=== PATIENT | male | born 1965 | race Caucasian/White ===

== ENCOUNTER → 2017-10-17 13:11 | Outpatient (CLI) | payer OTHER, SELFPAY ==
--- NOTE | 2017-10-17 | IMM_PTH ---
PATIENT: NOAM MENSAH LOC: [facility] U#:[id number] AGE/SX: 59/M ROOM: RE10/17/[address]: Dr. Malachi Saez MD : 1965 BED: DIS: SPEC #: [id number] RECD: 10/21/17 13:10 STATUS: PABLO REQ #: [id number] MAGGY: 10/17/17 00:[address]: Malachi Saez DEPT: IMMUNOHISTOCHEMISTRY RECD BY: Christy Richmond ENTERED: 10/21/17 13:11 SP TYPE: IMMUNO OTHR DR: Dr. Vijay Warner DO Tissues: Skin of eyelid, NOS Procedures: SMA (add) CD34 (add) MACRO (add) Pankeratin (add) Vimentin (initial) S-100 (add) PHYSICIAN & INSTITUTION [place] [id number] SPECIMEN INFORMATION: Tissue Source: Left upper eyelid lesion Clinical Info: Increased size of left upper eyelid lesion Specimen Number: [id number] CPT code: 98721, 74106 x5 METHODOLOGY: Deparaffinized sections of prefer/formalin-fixed tissue or PAP/DQ stained slides are incubated with monoclonal/polyclonal antibodies/oligonucleotide probes. Localization is made via biotin free immunoperoxidase method. Appropriate controls are performed and reacted as expected. Results on target cell population are indicated in the following table: RESULTS: ANTIBODY / CLONE RESULT Vimentin (V9) positive Actin (1A4) negative Macro (HAM-56) negative S-100 (4C4.9) negative AE1-3 (AE1/AE3/PCK26) negative CD34 (QBEnd-10) positive These tests were developed and their performance characteristics determined by [facility]. They may not have been cleared or approved by the U.S. Food and Drug Administration. The FDA has determined that such clearance or approval is not necessary. INTERPRETATION: Left upper eyelid lesion, excision: Benign fibrous nodule. AM:byron 10/21/17
--- NOTE | 2017-10-17 | LES_PTH ---
PATIENT: NOAM MENSAH LOC: [facility] U#:[id number] AGE/SX: 59/M ROOM: RE10/17/[address]: Dr. Malachi Saez MD : 1965 BED: DIS: SPEC #: [id number] RECD: 10/17/17 13:57 STATUS: PABLO MIGUEL ÁNGEL #: [id number] MAGGY: 10/17/17 00:[address]: Malachi Saez DEPT: SURGICAL PATHOLOGY RECD BY: Simone Eckert ENTERED: 10/20/17 08:47 SP TYPE: Lesion OTHR DR: Dr. Vijay Warner, Tissues: Skin of eyelid, NOS Procedures: Surgery Specimen Level IV HEADER OPERATION: Left upper lid lesion excision PRE-OP DIAGNOSIS: Increased size of left upper lid lesion TISSUE SUBMITTED: Left upper lid lesion MICROSCOPIC DIAGNOSIS Left upper eyelid lesion, biopsy: Benign fibrous nodule. AM:byron 10/21/17 COMMENT Immunohistochemistry ([id number]) supports the above diagnosis. Case has been reviewed in consultation with Dr. Singh who concurs with the above diagnosis. IDC:SJ MICROSCOPIC DESCRIPTION Slides are reviewed. GROSS DESCRIPTION Received in fixative is one container labeled with the patient's name and designated left upper lid. The specimen consists of a piece of bernal-white skin measuring 0.3 x 0.3 x 0.2 cm. The specimen is totally submitted in one cassette. / STEPHEN:byron 10/20/17 TC:5 CPT: 12163
== END ==
PROVIDERS: Family Provider Family Medicine; PCP Family Medicine; Visit Provider Ophthalmology
DX: H02.9 Unspecified disorder of eyelid (principal)
CPT/HCPCS: 88305; 88341; 88342

== ENCOUNTER → 2018-10-27 | Outpatient (CLI) | payer OTHER, SELFPAY ==
[2018-10-27 12:27] LABS: Absolute Lymphocyte Count 1.84 X10^3/uL (0.83-4.51); Absolute Neutrophil Count 2.5 X10^3/uL (2.0-7.7); Basophil# 0.03 X10^3/uL; Basophil% 0.6 % (0-1); Hematocrit 43.7 % (40-54); Hemoglobin 14.3 g/dL (13.0-16.5); Lymphocyte # 1.84 X10^3/ul (4.0); Lymphocyte % 37.2 % (19-41); Mean Corp Hgb Conc 32.7 g/dL (32-36); Mean Corpuscular Volume 97.8 fL (80-94); Monocyte# 0.42 X10^3/uL; Monocyte% 8.5 % (0-10); Neutrophil # 2.45 X10^3/uL (2.7-7.7); Neutrophil % 49.5 % (47-70); Platelet Count 201 K/mm3 (150-450); RBC Distribution Width CV 12.4 % (11.6-14.6); RBC Distribution Width SD 44.9 fl (35.1-43.9); Red Blood Count 4.47 M/mm3 (4.6-6.2)
[2018-10-27 12:58] LABS: ALB/GLOB Ratio 1.4 RATIO (0.9-2.4); AST(SGOT) 14 U/L (15-37); Alanine Aminotransfer ALT/SGPT 23 U/L (16-61); Albumin, Serum 3.7 g/dL (3.2-5.0); Alkaline Phosphatase 54 U/L (45-117); Anion Gap 0 (5-15); BUN 19 mg/dL (7-18); BUN/Creat Ratio 15.7 RATIO (10-20); Calcium,Total 8.2 mg/dL (8.5-10.1); Chloride 109 mmol/L (98-107); Cholesterol 161 mg/dL (200); Creatinine, Serum 1.21 mg/dL (0.70-1.30); EST Glomerular Filtration Rate 67 mL/min (>60); Est Glom Filt Rate - Afr Amer 81 mL/min (>60); Globulin 2.7 g/dL (2.2-4.2); Glucose 94 mg/dL (74-106); High Density Lipoprotein 52 mg/dL; PSA,Total - Annual Screen 0.72 ng/mL (0.00-4.00); Potassium 3.8 mmol/L (3.5-5.1); Protein, Total 6.4 g/dL (6.4-8.2); Sodium Level 140 mmol/L (136-145); Triglycerides 65 mg/dL; Very Low Density Lipoprotein 13 mg/dL (5-40)
== END | disposition home or self-care (01) ==
LOC: BFHLAB 08:25
PROVIDERS: Family Provider Family Medicine; PCP Family Medicine; Visit Provider Family Medicine
DX: Z00.00 Encounter for general adult medical examination without abnormal findings (principal); Z12.5 Encounter for screening for malignant neoplasm of prostate
CPT/HCPCS: 36415; 80053; 80061; 84153; 85025; G0103

== ENCOUNTER 2018-11-05 06:00 | Day surgery (SDC) | payer OTHER, SELFPAY ==
[2018-11-05] VITALS (11 sets, daily range): BP systolic 110–136; BP diastolic 51–73; PULSE 69–85; RESP 14–16; TEMP 36.3–37; O2SAT 94–98; BMI 30.4
--- NOTE | 2018-11-05 06:49 | H&P.OPEN ---
History of Present Illness Date of Admission: 11/05/18 The patient is a 53 year old M here for screening colonoscopy. Patient reports he is never had a colonoscopy in the past. He denies any abdominal pain or blood in his stool. He denies any family history of colon cancer. Past Medical/Surgical History - Planned Operation Planned Operative Procedure/s: cscope open access Date of Operative Procedure: 11/05/18 Permit Signed: No S.O.S: No Is This Patient Having a Total Joint: No - Previous Hospitalizations/Surgeries HX Hospitalizations: No HX of Surgeries: wisdom teeth Any Problems With Anesthesia: No You/Your Family Experience Fever (Hyperthermia) With Anes: No Cholinesterase deficiency: No - Cardiovascular Hx Chest Pain within Last 2 months: No Hx of Irregular Heartbeat and/or Afib: No Hx Heart Attack: No Hx Congestive Heart Failure: No Hx Rheumatic Fever: No Hx Hypertension: Yes - controlled with med Hx Internal Defibrillator: No Hx Pacemaker: No Hx Cardiac Catheterization: No Hx Cardiac Surgery/Stents/Etc.: No Hx Stress Test: No HX Edema: Yes - left leg varicose veins Hx Pain in Legs when Walking/Leg Cramps: Yes - knees - Respiratory Chronic Cough: No HX of Shortness of Breath: No Hoarseness: No Hx Chronic Obstructive Pulmonary Disease (COPD): No Hx Asthma: No Hx Emphysema: No Hx Sleep Apnea: No Hx Oxygen Use at Home: No Hx Respiratory Tract Infection/Cold (presently): No Do You Snore Loudly (louder than talking or can be heard): Yes Do You Often Feel Tired/ Fatigued/ Sleepy Dring Daytime?: Yes Has Anyone Observed You Stop Breathing During Sleep?: Yes Result (for STOP score): Positive Hx Smoking: No Smoking Status: Never smoker - Gastrointestinal Hx Gastroesophageal Reflux: Yes Controlled With Meds: No - no meds started at this time Hx Gastrointestinal Disorders: No Hx Gastrointestinal Bleed: No Hx Ulcer: No Hx Hiatal Hernia: No Difficulty Chewing/Swallowing: No Recent Onset of Swallowing Problems: No Special diet followed at home: No Hx Unplanned Weight Loss of 20#: No HX Unplanned Weight Gain of 20#: No - Neurological Hx Seizures: No HX Syncope/Blackout Spells/Unconsciousness: No Hx CVA/Stroke: No Hx Transient Ischemic Attacks (TIA): No Hx Multiple Sclerosis: No Hx Parkinson's Disease: No Hx Head/Neck Injury: No Hx Headaches: No Hx Back Injury/Pain: Yes - ddd Recent Onset of Speech Difficulty: No Restless Legs: No Does patient have nerve stimulator: No Patient instructed to have device shut off: No Rep notified?: No - Blood Disorder Hx Leukemia: No Bleeding Tendencies: No Hx Deep Vein Thrombosis: No Hx High Cholesterol: No Blood Transmitted Disease: No Hx Hepatitis: No Hx Cirrhosis: No Hx Anemia: No Hx Blood Disorders: No - Genitourinary Hx Renal Disease: No Hx Dialysis: No - Musculoskeletal Hx Arthritis: Yes Hx Rheumatoid Arthritis: No Hx Gout: No Recent Onset of an Orthopedic Problem: No - Endocrine Hx Diabetes: No Thyroid Disease: No Hx Steroid Therapy: No - Psycho/Social Hx Substance Use: No Hx Alcohol Use: No Hx Anxiety: No Hx Depression: No Mental Illness: No Hx Dementia: No - Miscellaneous Hx Cancer: No Recent Exposure to Contagious Disease: No Active MRSA: No Hx of C-Diff: No Any Loose Teeth: No Allergies No Known Allergies Allergy (Verified 11/02/18 10:12) - Discharge Is Pt Admitted From a [facility], or a [facility]pc: No Who Could Help: family After D/C, Where Do you Plan to Go: Return Home - Physical Exam General: Alert, Oriented x3 Neck: No JVD Lungs: Normal air movement Cardiovascular: Regular rate, Regular Rhythm, Normal S1 Abdomen: Soft, Non Tender, Non-Distended Vital Signs Temp Pulse Resp BP Pulse Ox 97.3 F L 72 16 136/73 H 98 11/05/18 06:15 11/05/18 06:15 11/05/18 06:15 11/05/18 06:15 11/05/18 06:15 Oxygen Delivery Method Room Air Weight: 218 lb 11.177 oz Body Mass Index (BMI) 30.4 Assessment/Plan 53-year-old male for screening colonoscopy I explained endoscopy in detail to the patient. I explained the risks including but not limited to stroke or heart attack with anesthesia, perforation of the GI tract, bleeding, infection. I explained that any of these could necessitate further emergency surgery. The patient understands and all questions were answered sufficiently. The patient wishes to proceed with procedure. Darrell Parnell MD Pager: [facility] [address] [place] [address], [address] [place] [address] Office: Surgery Risks - Colonoscopy Risks Include but are not Limited To: Risks include but are not limited to: Bleeding, perforation requiring further surgery, inability to complete colonoscopy requiring barium enema.
--- NOTE | 2018-11-05 07:27 | OP.ENDO_ITS ---
11/05/2018 Vijay Warner [address] [place] [address] Re : Colonoscopy procedure for Semaj Dempsey Dear Dr. Warner This procedure was performed on October. My impressions and recommendations are as follows: Impressions : - The entire examined colon is normal on direct and retroflexion views. - No specimens collected. Recommendations : - Discharge patient to home. - Resume previous diet. - Continue present medications. - Repeat colonoscopy in 10 years for screening purposes. My findings are described in the full procedure note, which is enclosed. If I can be of further assistance, please feel free to contact me at Doctor phone number(s): , Work: . Sincerely, Darrell Parnell MD 11/05/2018 7:27:21 AM This report has been signed electronically.
== END 2018-11-05 08:21 | disposition home or self-care (01) ==
LOC: EN 06:01 → AC 06:02
PROVIDERS: Family Provider Family Medicine; PCP Family Medicine; Referring Provider Surgery; Visit Provider Surgery
PROC: 0DJD8ZZ Inspection of Lower Intestinal Tract, Via Natural or Artificial Opening Endoscopic (ICD-10-PCS; CPT 45378; principal; 2018-11-05 06:55)
DX: Z12.11 Encounter for screening for malignant neoplasm of colon (principal); I10 Essential (primary) hypertension; I83.92 Asymptomatic varicose veins of left lower extremity; K21.9 Gastro-esophageal reflux disease without esophagitis; M19.90 Unspecified osteoarthritis, unspecified site; Z79.899 Other long term (current) drug therapy
CPT/HCPCS: 45378; J7120

== ENCOUNTER 2018-12-14 08:04 | Emergency (ER) | payer OTHER, SELFPAY ==
[2018-11-05 06:15] VITALS: BMI 30.4
[2018-12-14 08:05] VITALS: BP 168/129; PULSE 87; RESP 22; TEMP 36.2; O2SAT 99; BMI 30.7
--- NOTE | 2018-12-14 08:31 | RAD_ITS ---
STUDY: X-RAY - CERVICAL SPINE REASON FOR EXAM: Male, 53 years old. PT STATES THAT HE WOKE UP THIS MORNING WITH SEVERE NECK PAIN THAT RADIATES DOWN TO BACK. PT STATES HE IS UNABLE TO PUT HIS LEFT ARM DOWN TECHNIQUE: 3 view(s) of the cervical spine were obtained. COMPARISON: None FINDINGS: Normal anterior atlantoaxial articulation. Normal odontoid process. Normal cervical lordosis. Normal vertebral bodies and endplates. C7-T1 degenerative disc disease. The soft tissue structures are unremarkable. RAD/Cerv Spine 2 or 3 Views IMPRESSION: C7-T1 degenerative disc disease. No acute osseous abnormality is evident. Electronically Signed: Nithin Grijalva MD at 9:53 EDT Tel , Service support ,
--- NOTE | 2018-12-14 08:32 | ED.DCSUM_ITS ---
History of Present Illness Chief Complaint: Other, Pain/Inj Detail of Chief Complaint: neck pain Informant: Patient Onset: Weeks - 3 Context: Sudden Onset Timing: Continuous, Waxes and wanes Quality: pain Location: left neck and upper thoracic back Current Severity: Severe Maximum Severity: Severe Worsened by: leaving LUE down at side Relieved by: holding left hand on top of head Associated Symptoms: numbness in 4th-5th fingers left hand Narrative: Patient lifts weights regularly at the gym, and 3 weeks ago while doing standing arm curls, he had his neck hyperflexed during it, and felt a twinge of pain in the left neck and upper thoracic area. The pain did get a little worse and then eased off over the next several days, persisted though. He was doing shoulder abduction exercises against resistance several days ago and felt the pain returned with a pop so he stopped lifting and yesterday worked out legs. He woke up this morning and the pain is more severe, along with numbness in the ring and little fingers of his left hand. This feels better by leaving his arm up over his head so he is pacing the room with his hand on top of his head. He denies any weakness or dropping anything. He is right-hand dominant. States he has a history of degenerative disc disease in his low back. - Past Medical History (1) DDD (degenerative disc disease), lumbar Status: Chronic Past Medical History - Allergies and Home Meds Allergies/Adverse Reactions: Allergies No Known Allergies Allergy (Verified 12/14/18 08:04) Primary Care Physician: Vijay Warner DO [Primary Care Provider] - Smoking Status: Never smoker Drugs: None Review of Systems General: Denies: Chills, Fever, Sweats Eyes: Denies: Visual changes - bilaterally, Diplopia ENT: Denies: Rhinorrhea, Sore throat Cardiovascular: Denies: Chest pain, Palpitations Respiratory: Denies: Dyspnea, Cough, Dyspnea on exertion Gastrointestinal: Denies: Abdominal pain, Nausea, Vomiting, Diarrhea, Melena, Hematochezia Genitourinary: Denies: Dysuria, Hematuria, Frequency Musculoskeletal: Reports: Neck pain, Back pain - left upper thoracic, Extremity Pain - burning down LUE Skin: Denies: Rash, Wounds Neurological: Reports: Numbness - LUE fingers 4-5. Denies: Headache, Weakness Physical Exam Vital Signs/Narrative: Vital Signs Temp Pulse Resp BP Pulse Ox 12/14/18 08:05 97.2 F L 87 22 H 168/129 H 99 Inital Vital Signs reviewed: Yes General: Well nourished, Well developed, Acute Distress - painful; uncomfortable. conversational, ambulatory. Head: Normocephalic, Atraumatic Eyes: Perrl, EOMI Neck: Supple, No lymphadenopathy, - - mildly tender left cervical paraspinal area; pt in more pain than he is tender. Back: - - paraspinal tend mild in rhomboids on left only. Negative for: Spinal tenderness Extremities: Nontender, No edema, - - neg Tinel's LUE ulnar nerve tunnel at medial elbow Skin: Normal color, No rash, No Trauma Neurological: Alert, Oriented x3, Cranial nerves II-XII grossly intact, Normal Strength - including M/R/U nerve distribution left hand, Normal Gait, Parasthesia - in ulnar nerve dist LUE, small finger and only ulnar aspect of ring finger Diagnostic/Tx/Re-eval Clinical Impression(s) from Imaging Studies Cervical Spine X-Ray 12/14/18 08:31 IMPRESSION: C7-T1 degenerative disc disease. No acute osseous abnormality is evident. Electronically Signed: Nithin Grijalva MD at 9:53 EDT Tel , Service support , - Medical Decision Making X-rays do show a single level of possible disc disease, but he will need a nonemergent MRI to visualize this further. Given this, and the location of his pain and symptoms with a negative Tinel's at the ulnar tunnel, he probably has a radiculopathy causing his arm discomfort. He was given Toradol and Norflex since he is driving himself home, this did help some. He will be placed on a course of steroids to see if that helps, in addition to symptomatic treatment and advised to follow-up and advise putting more strain on the injured area. He is comfortable with that plan. ED Disposition - Plan for ED Patient: Disposition: Home or Assisted Living Diagnosis: Cervical myofascial strain, Cervical radiculopathy Instructions: Neck Sprain/Strain, RADICULOPATHY, Cervical Prescriptions: Hydrocodone Bitart/Apap 5-325 [Hernando 5MG-325MG] 1 tab PO Q4H PRN PRN 2 Days #10 tab PRN Reason: Pain Prescription Printed Prednisone 10 mg PO UD #33 tab Prescription Printed Referrals: Vijay Warner DO [Primary Care Provider] - 1 Week if not improving
[2018-12-14] MEDS: Ketorolac 60 MG/2 ML Vial IM (08:35)
[2018-12-14] MEDS: Orphenadrine 60 MG/2 ML Ampul IM (08:35)
--- NOTE | 2018-12-14 10:51 | ED.RN ---
PT LEFT PRIOR TO RECEIVING PREDNISONE
--- NOTE | 2018-12-14 10:53 | ED.RN ---
LEFT PRIOR TO RECEIVING PREDNISONE
== END 2018-12-14 10:40 | disposition home or self-care (01) ==
PROVIDERS: Emergency Provider Emergency Medicine; Family Provider Family Medicine; PCP Family Medicine
DX: S16.1XXA Strain of muscle, fascia and tendon at neck level, initial encounter (principal); M54.12 Radiculopathy, cervical region; X50.1XXA Overexertion from prolonged static or awkward postures, initial encounter; Y93.B9 Activity, other involving muscle strengthening exercises; Y92.9 Unspecified place or not applicable; M51.36 Other intervertebral disc degeneration, lumbar region
CPT/HCPCS: 72040; 96372; 99282

== ENCOUNTER 2018-12-16 14:19 | Emergency (ER) | payer OTHER, SELFPAY ==
[2018-12-16 14:20] VITALS: BP 134/73; PULSE 98; RESP 22; TEMP 36.6; O2SAT 98; BMI 30.7
--- NOTE | 2018-12-16 14:33 | ED.RN ---
pt in bed hyperventilating and very anxious and restless in bed. c/o no relief since was seen on friday for pinched nerve pt given norco and prednisone but not helping any and pain worse to post lt scapula with hernandes and numbness and tingling down arm. spo2 97%. pt with nausea and cool wash cloth applied. teaching given on hyperventilating and instructed to take slow deep breaths as now c/o numbness in rt hand now. in at bedside.
--- NOTE | 2018-12-16 14:44 | MRI_ITS ---
STUDY: MRI CERVICAL SPINE WITHOUT CONTRAST REASON FOR EXAM: Male, 53 years old. Neck pain and sudden onset of left scapular and arm pain TECHNIQUE: Standardized fat and water weighted pulse sequences were obtained in the sagittal and axial planes. COMPARISON: None FINDINGS: Normal foramen magnum and brainstem-cervical cord junction. Normal craniovertebral junction. Normal anterior atlantoaxial articulation. Normal odontoid process. Decreased cervical lordosis. Normal vertebral bodies and posterior osseous elements. C2-3: Normal endplates. Normal disc height, signal and morphology. Normal central canal and intervertebral neural foramina. C3-4: Normal endplates. Normal disc height, signal and bulging of the disc. Mild narrowing of the central canal and bilateral neuroforamina C4-5: Normal endplates. Normal disc height, signal and moderate sized left posterolateral/foraminal disc protrusion. Mild narrowing of the central canal on the left and moderate left neuroforaminal stenosis C5-6: Normal endplates. Normal disc height, signal and small left posterolateral/foraminal disc protrusion. Normal central canal. Mild left neural foraminal encroachment. C6-7: Normal endplates. Normal disc height, signal and minor bulging disc osteophyte complex.. Normal central canal. Mild bilateral neural foraminal encroachment. C7-T1: Normal endplates. Normal disc height, signal and mild bulging of the disc in association with a large left posterolateral/foraminal disc/osteophyte protrusion.. There is narrowing of the central canal on the left with cord compression as well as severe stenosis, near occlusion of the left nerve root foramen Normal cervical cord. Normal visualized soft tissue structures. MRI/Spine Cervical (Routine) IMPRESSION: No evidence for acute fracture or other significant bony pathology. Multilevel spinal stenosis secondary to disc disease and bony hypertrophy most severe on the left at C7-T1 where there is cord compression as well as near occlusion of the left nerve root foramen. Findings as above Electronically Signed: Malachi Laird MD at 18:21 EDT , Service support ,
[2018-12-16] MEDS: morphine 8 MG/ML Syringe SC (14:56)
[2018-12-16] MEDS: Ondansetron ODT 4 MG Tablet PO (15:01)
--- NOTE | 2018-12-16 15:21 | ED.VIS.GEN ---
History of Present Illness Chief Complaint: Upper Extremity Injury Narrative: Patient presenting for evaluation secondary to neck pain left arm pain. Patient reports that on Friday he had a feeling of some mild numbness in his left arm, but since Friday he has had severe left-sided neck pain with radiation down his left arm. He states that it is associated with both numbness and weakness in his left hand. Patient was seen in the emergency department for this, was started on a course of anti-inflammatories, muscle relaxants, and prednisone. Patient states that despite this he has had persistent pain, and really can only walk without severe pain if he has his chin tucked all the way down to his chest. He denies any fevers. Denies any recent injections, surgeries, history of IV drug abuse. No abnormal fevers or unintended weight loss. Patient is otherwise healthy and weightlifter. He does state that intermittently when he has been weightlifting he has been doing bicep curls and would potentially feel a pop in his neck or his shoulder, but that was not necessarily associated with the beginning of this pain. Review of systems otherwise negative. Past Medical History - Allergies and Home Meds Allergies/Adverse Reactions: Allergies No Known Allergies Allergy (Verified 12/16/18 14:19) Primary Care Physician: Vijay Warner DO [Primary Care Provider] - Past Medical History: None Smoking Status: Never smoker Review of Systems All systems negative except as indicated General: Denies: Fever Musculoskeletal: Reports: Neck pain Neurological: Reports: Weakness, Parasthesia, Numbness Physical Exam Vital Signs/Narrative: Vital Signs Temp Pulse Resp BP Pulse Ox 12/16/18 14:20 97.9 F 98 22 H 134/73 H 98 General: Well nourished, Well developed, Acute Distress - Secondary to pain Head: Normocephalic, Atraumatic Eyes: Perrl, EOMI ENT: Moist mucous membranes Neck: - - Patient has some midline tenderness to palpation of his lower cervical spine as well as the left paraspinal neck. Cardiovascular: Regular rate, Regular rhythm, No murmurs, - - 2+ radial pulses bilaterally symmetric Respiratory: No distress, CTA bilaterally, Chest nontender Abdomen: Soft, Nontender, Nondistended, Normal bowel sounds Extremities: Nontender, No edema Neurological: - - Patient appears to have both numbness and weakness over the C6-7 and C8 nerve roots as he has some weakness with wrist flexion and with flexion of the fingers. Numbness over these dermatomes as noted. Normal capillary refill normal pulses. Psychological: Normal affect Diagnostic/Tx/Re-eval - Medical Decision Making Patient presented with very clear radicular symptoms and objective weakness over c6/7 and c7/8 distributions. Pt was given morphine for pain. Repeat evaluation of the patient demonstrates him to have some symptomatic improvement. Given the weakness associated with the patient's discomfort, I did have concern for cervical pathology so an MRI was ordered. Is currently pending at this time. Patient will be followed up on by the oncoming physician. ED Disposition - Plan for ED Patient: Diagnosis: Cervical radiculopathy
[2018-12-16 16:19] VITALS: BP 156/86; PULSE 75; RESP 18; O2SAT 97
--- NOTE | 2018-12-16 19:39 | ED.RN ---
ATTEMPTED TO CONTACT DR VILLARREAL THROUGH ANSWERING SERVICE. HE IS NOT EVENT MARKETING REPRESENTATIVE. THEY DO NOT CONTACT THE SURGEON WHEN NOT EVENT MARKETING REPRESENTATIVE
[2018-12-16 20:21] VITALS: BP 168/89; PULSE 73; RESP 18; O2SAT 96
--- NOTE | 2018-12-16 20:32 | ED.DEP ---
ED Disposition - Plan for ED Patient: Diagnosis: Cervical radiculopathy Instructions: RADICULOPATHY, Cervical Prescriptions: Oxycodone HCl/Acetaminophen [Percocet 5/325] 1 tablet PO Q6H PRN PRN 3 Days #12 tablet PRN Reason: Pain Ondansetron [Zofran Odt] 4 mg PO Q8H PRN PRN #10 tablet PRN Reason: Nausea Referrals: Vijay Warner DO [Primary Care Provider] - Yohannes Trevizo MD [NON-STAFF] - Tree Bowen MD [NON-STAFF] -
[2018-12-16 21:01] VITALS: RESP 18
== END 2018-12-16 21:01 | disposition home or self-care (01) ==
LOC: ED 14:47
PROVIDERS: Emergency Provider Emergency Medicine; Family Provider Family Medicine; PCP Family Medicine
DX: M54.12 Radiculopathy, cervical region (principal); M48.02 Spinal stenosis, cervical region
CPT/HCPCS: 72141; 96372; 99282

== ENCOUNTER → 2023-10-06 | Outpatient (CLI) | payer OTHER, SELFPAY ==
--- NOTE | 2023-10-06 06:46 | EKG12_ITS ---
Test Reason : PREOP Blood Pressure : / mmHG Vent. Rate : 059 BPM Atrial Rate : 059 BPM P-R Int : 162 ms QRS Dur : 114 ms QT Int : 446 ms P-R-T Axes : 064 -36 005 degrees QTc Int : 441 ms Sinus bradycardia with sinus arrhythmia Left axis deviation Abnormal ECG Confirmed by Ulysses Welch ([id number]), newspaper or periodical editor JAK PARKS ([id number]) on 10/07/2023 6:09:44 AM Referred By: Bo Boothe Confirmed By:Ulysses Welch
[2023-10-06 08:39] LABS: Absolute Lymphocyte Count 2.49 X10^3/uL (0.83-4.51); Absolute Neutrophil Count 2.4 X10^3/uL (2.0-7.7); Basophil# 0.08 X10^3/uL; Basophil% 1.4 % (0-1); Eosinophil# 0.25 X10^3/uL; Eosinophils% 4.4 % (0-5); Hemoglobin 14.9 g/dL (13.0-16.5); Lymphocyte # 2.49 X10^3/ul (0.83-4.51); Lymphocyte % 44.1 % (19-41); Mean Corp Hgb Conc 33.9 g/dL (32-36); Mean Corpuscular Hgb 32.2 pg (27.0-32.0); Mean Platelet Vol. 11.2 fl (6.2-12.0); Monocyte# 0.43 X10^3/uL; Monocyte% 7.6 % (0-10); NRBC Flagged by Analyzer 0 % (0-5); Neutrophil # 2.38 X10^3/uL (2.7-7.7); Neutrophil % 42.3 % (47-70); Platelet Count 200 K/mm3 (150-450); RBC Distribution Width CV 12.1 % (11.6-14.6); RBC Distribution Width SD 42.1 fl (35.1-43.9); Red Blood Count 4.63 M/mm3 (4.6-6.2); White Blood Count 5.6 K/mm3 (4.4-11.0)
[2023-10-06 09:40] LABS: Anion Gap 6 (5-15); BUN 19 mg/dL (7-18); BUN/Creat Ratio 15.4 RATIO (10-20); Calcium,Total 8.8 mg/dL (8.5-10.1); Chloride 109 mmol/L (98-107); Creatinine, Serum 1.23 mg/dL (0.70-1.30); EST Glomerular Filtration Rate 65 mL/min (>60); Est Glom Filt Rate - Afr Amer 78 mL/min (>60); Glucose 102 mg/dL (74-106); Potassium 3.9 mmol/L (3.5-5.1); Sodium Level 142 mmol/L (136-145)
== END | disposition home or self-care (01) ==
PROVIDERS: PCP Family Medicine; Referring Provider Student in an Organized Health Care Education/Training Program; Visit Provider Student in an Organized Health Care Education/Training Program
DX: Z01.818 Encounter for other preprocedural examination (principal); Z01.810 Encounter for preprocedural cardiovascular examination
CPT/HCPCS: 36415; 80048; 85025; 93005

== ENCOUNTER → 2024-08-10 | Outpatient (CLI) | payer OTHER, SELFPAY ==
[2024-08-10 16:14] LABS: Anion Gap 11 (5-15); BUN 22 mg/dL (4-19); BUN/Creat Ratio 16.1 RATIO (10-20); Carbon Dioxide 25.2 mmol/L (21.0-32.0); Chloride 99 mmol/L (98-108); Creatinine, Serum 1.37 mg/dL (0.70-1.20); EST Glomerular Filtration Rate 60 (>60); Glucose 128 mg/dL (70-99); Magnesium 2.1 mg/dL (1.5-2.2); Potassium 4.1 mmol/L (3.3-5.1); Sodium Level 136 mmol/L (133-145)
== END | disposition home or self-care (01) ==
LOC: LAB 14:54
PROVIDERS: PCP Family Medicine; Referring Provider Family Medicine; Visit Provider Family Medicine
DX: I10 Essential (primary) hypertension (principal); R25.2 Cramp and spasm
CPT/HCPCS: 36415; 80048; 83735

== ENCOUNTER 2024-11-19 06:34 | Outpatient (CLI) | payer OTHER, SELFPAY ==
--- NOTE | 2024-11-19 06:39 | CT_ITS ---
PROCEDURE: LIMITED CHEST CT CARDIAC ONLY 11/19/2024 REASON FOR EXAM: HYPERTENSION TECHNIQUE: LIMITED CHEST CT CARDIAC ONLY CONTRAST: None One or more dose reduction techniques were used (e.g., Automated exposure control, adjustment of the mA and/or kV according to patient size, use of iterative reconstruction technique). RADIATION DOSE SUMMARY: CTDlvol: 12.19 mGy DLP: 219.42 mGycm COMPARISON: None FINDINGS: Small benign-appearing mediastinal lymph nodes. No coronary artery calcification is seen. The heart is nonenlarged. The lungs are clear. CT/Limited Chest CT Cardiac Only IMPRESSION: No coronary artery calcific. Reading Location: [facility]
--- OUTSIDE RECORDS SUMMARY | 2024-11-19 06:40 | XMS RPT_ITS | CCD ---
Author Organization [facility] Care Team Providers Care Membership Counselor Name Role Phone Tree Bowen MD Unavailable Referred, Self Attending Unavailable Referred, Self Referring Unavailable Vijay Warner Primary Care Unavailable Nolvia Galicia Attending Unavailable Nolvia Galicia Referring Unavailable Vijay Warner Primary Care Unavailable Nolvia Galicia Attending Unavailable Nolvia Galicia Referring Unavailable Vijay Warner Primary Care Unavailable Vijay Warner Primary Care Unavailable Vijay Warner Attending Unavailable Vijay Warner Referring Unavailable Allergies Allergy Classification Reported Allergen(s) Allergy Type Date of Onset Reaction(s) Facility (1 source) PLANT POLLEN drug allergy 12-17-2018 hay fever [facility] [place] [facility] Work Phone: Medications Completed/Discontinued Medications Medication Drug Class(es) Dates Sig (Normalized) Sig (Original) esomeprazole 20 mg delayed release oral capsule (1 source) Proton Pump Inhibitor Start: 12-17-2018 ESOMEPRAZOLE MAGNESIUM 20 MG CPDR 1 capsule daily ESOMEPRAZOLE MAGNESIUM [id number] Cass Corsaro RANGER AIDE lisinopril 10 mg oral tablet (1 source) Angiotensin Converting Enzyme Inhibitor Start: 12-17-2018 LISINOPRIL 10 MG TABS 1 tablet daily LISINOPRIL [id number] Cass Corsaro RANGER AIDE meloxicam 15 mg oral tablet (1 source) Nonsteroidal Anti-inflammatory Drug Start: 12-21-2018 MOBIC 15 MG TABS one a day MELOXICAM [id number] Tree Bowen MD Problems Active Problems Problem Classification Problem Date Documented Date Episodic/Chronic Conduction disorders (1 source) Unspecified right bundle-branch block; Translations: [Unspecified right bundle-branch block] Onset: 11-15-2024 Chronic Essential hypertension (2 sources) Essential (primary) hypertension; Translations: [Essential (primary) hypertension] Onset: 08-16-2024 Chronic Spondylosis; intervertebral disc disorders; other back problems (2 sources) Cervical radiculopathy; Translations: [Prolapsed cervical intervertebral disc] Onset: 12-21-2018 12-21-2018 Chronic Past or Other Problems Problem Classification Problem Date Documented Date Episodic/Chronic Other acquired deformities (1 source) Stenosis of intervertebral foramina; Translations: [Spinal stenosis, cervical region] Onset: 12-21-2018 12-21-2018 Episodic Unclassified (1 source) Problem Results Test Name Value Interpretation Reference Range [facility] Basic Metabolic Profile (BMP )on 08-10-2024 BUN/CRE 16.1 RATIO Normal 10-20 [facility] Comment on above: Performed By: #### L [id number], L500.2500 #### [facility] [address] [place], [address] Calcium [Mass/Vol] 9.0 mg/dL Normal 7.6-11.0 [facility] Comment on above: Performed By: #### L [id number], L500.2500 #### [facility] [address] [place], [address] Chloride [Moles/Vol] 99 mmol/L Normal 98-108 [facility] Comment on above: Performed By: #### L [id number], [id number] #### [facility] [address] [place], [address] CO2 [Moles/Vol] 25.2 mmol/L Normal 21.0-32.0 [facility] Comment on above: Performed By: #### L [id number], [id number] #### [facility] [address] [place], [address] Creatinine [Mass/Vol] 1.37 mg/dL High 0.70-1.20 [facility] Comment on above: Performed By: #### L [id number], L500.2500 #### [facility] [address] [place], [address] GAP 11 Normal 5-15 [facility] Comment on above: Performed By: #### L [id number], [id number] #### [facility] [address] [place], [address] GFR/1.73 sq M.predicted among non-blacks MDRD (S/P/Bld) [Vol rate/Area] 60 mL/min/{1.73_m2} Normal >60 [facility] Comment on above: Result Comment: mL/m in/1.73m2 CKD-EPI Creatinine Equation (2020) Performed By: #### L [id number], L500.2500 #### [facility] [address] [place], [address] Glucose [Mass/Vol] 128 mg/dL High 70-99 [facility] Comment on above: Performed By: #### L [id number], L500.2500 #### [facility] [address] [place], [address] Potassium [Moles/Vol] 4.1 mmol/L Normal 3.3-5.1 [facility] Comment on above: Performed By: #### L [id number], [id number] #### [facility] [address] [place], [address] Sodium [Moles/Vol] 136 mmol/L Normal 133-145 [facility] Comment on above: Performed By: #### L [id number], [id number] #### [facility] [address] [place], [address] Urea nitrogen [Mass/Vol] 22 mg/dL High 4-19 [facility] Comment on above: Performed By: #### L [id number], [id number] #### [facility] [address] [place], [place], [address] Magnesiumon 08-10-2024 Magnesium [Mass/Vol] 2.1 mg/dL Normal 1.5-2.2 [facility] Comment on above: Performed By: #### L [id number], L500.2500 #### [facility] [address] [place], [place], [address] Clinical Summary: HMSPatient IDon 12-21-[address] [facility] Work Phone: Office Visit: New - visi t with practice, Rm: 2012-21-2018 NEGATED: Highlighted rowMRI (magnetic resonance imaging) history of the cervical spine on 12/16/2018 at [facility] Work Phone: NEGATED: Highlighted rowxray history of the cervical spine on 12/14/2018 at [facility] Work Phone: Clinical Lists Update: Prelo ad Extendedon 12-17-2018 Tobacco smoking status NHIS Tobacco smoking status NHIS [facility] Work Phone: Clinical Summary: Data Submi tted by Patient in [place] 12-17-2018 #DEP CHLDRN No [facility] Work Phone: 3+ETOHDAILY less than 1 drink per day [facility] Work Phone: ASTHEHSZHOUS 2 floors [facility] Work Phone: DEP ALG LIST I don't have any drug allergies.,I don't have any food allergies.,Plant pollens (Hay Fever) [facility] Work Phone: DEP DRUG USE No [facility] Work Phone: DEP EMPLOYER employed [facility] Work Phone: DEP ETOH USE Yes [facility] Work Phone: DEP EXERCISE Yes [facility] Work Phone: DEP EXERTYP walking, strength training [facility] Work Phone: DEP MED LIST Lisinopril 10 mg Tab, 1 times per day,Esomeprazole [address], 1 times per day [facility] Work Phone: DEP MOM PMH Heart disease [facility] Work Phone: DEP PMH High blood pressure [facility] Work Phone: DEP SH CSMO never smoker [facility] Work Phone: DEP SH MAST [facility] Work Phone: DEP SH OCCUP Teacher 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 Work Phone: SURGHX DENMAURIZIO I have not had any surgeries [facility] Work Phone: SWHOUTYPE house [facility] Work Phone: Vital Signs Date Time Vital Sign Value Performing Clinician Facility NEGATED: Highlighted [id number] 15:39-0400 BMI (Body Mass Index) 29.95 kg/m2 Meg Soo AT [facility] [place] [facility] Work Phone: NEGATED: Highlighted [id number] 15:39-0400 Body weight 97.07 kg Meg Soo AT [facility] Work Phone: NEGATED: Highlighted [id number] 15:39-0400 Body weight 97 kg Meg Soo AT [facility] [place] [facility] Work Phone: NEGATED: Highlighted [id number] 15:39-0400 BP Diastolic 80 mm[Hg] Meg Soo AT [facility] Work Phone: NEGATED: Highlighted [id number] 15:39-0400 BP Systolic 128 mm[Hg] Meg Soo AT [facility] Work Phone: NEGATED: Highlighted [id number] 15:39-0400 Height 180.34 cm Meg Soo AT [facility] [place] [facility] Work Phone: NEGATED: Highlighted [id number] 15:39-0400 Height 180 cm Meg Soo AT [facility] Work Phone: NEGATED: Highlighted [id number] 15:39-0400 Pulse (Heart Rate) 71 /min Meg Soo AT [facility] Work Phone: Encounters Encounter Date Encounter Type Care Provider Facility Start: 11-24-2024 ambulatory Nolvia Mesaon Facilit y:[facility] Start: 11-19-2024 ambulatory Nolvia Firda Facilit y:[facility] Start: 10-12-2024 ambulatory Self Referred Facility: [facility] Start: 08-10-2024 End: 08-10-2024 ambulatory Vijay [facility] Facility:[facility] Start: 12-21-2018 End: 12-21-2018 Pt evaluation Tree Bowen MD Work Phone: [facility] Work Phone: Procedures Date Procedure Procedure Detail Performing Clinician NEGATED: Highlighted rowStart: 12-21-2018 End: 12-21-2018 Documentation of current medications Meg Vann AT Plan of Treatment Date Care Activity Detail Author Start: 12-21-2018 End: 12-21-2018 Appointment [facility]ment [facility] Work Phone: Patient Education Medications [facility] Work Phone: Payers Date Payer Category Payer Self-pay 2024 Unknown [id number] Unknown [id number] Unknown [id number] [id number] Unknown [id number] Unknown [id number] Social History Date Type Detail Facility Start: 12-21-2018 End: 12-21-2018 Assertion Unknown if ever smoked [facility] Work Phone: Chief Complaint Chief Complaint Description Start Date neck pain Preliminary chief co mplaint data, not yet signed by the author as of Instructions Instruction Description Start Date CompletedPatient advised to follow-up with Primary Care Physician for BMI management. Advance Directives There may be information available, but it has not been provided by the sender. No Advanced Directives Records Found Assessments There may be information available, but it has not been provided by the sender. Review of System There may be information available, but it has not been provided by the sender. Family History There may be information available, but it has not been provided by the sender.No Family History Records Found History of Present Illness There may be information available, but it has not been provided by the sender. Summary Purpose Additional Source Comments Reason for Visit (unrecogniz ed section and content) Reason For Visit Description New - 1st visit with practice Preliminary reason f or visit data, not yet signed by the author as of neck pain (unrecognized sect ion and content) No Status Records Found INFORMATION SOURCE (unrecogn ized section and content) DATE CREATED AUTHOR 11/16/2024 [facility] FOR RECORDS PERTAINING TO PATIENTS WHO ARE OR HAVE BEEN ENROLLED IN A CHEMICAL DEPENDENCY/SUBSTANCEABUSE PROGRAM, SOME INFORMATION MAY BE OMITTED. This clinical summary was aggregated from multiple sources. Caution should be exercised in using it in the provision of clinical care. This summary normalizes information from multiple sources, and as a consequence, information in this document may materially change the coding, format and clinical context of patient data. In addition, data may be omitted in some cases. CLINICAL DECISIONS SHOULD BE BASED ON THE PRIMARY CLINICAL RECORDS. [employer] provides no warranty or guarantee of the accuracy or completeness of information in this document.
--- NOTE | 2024-11-22 07:52 | CA.SCORE ---
Calcium Scoring Date of Study:: 11/19/24 Indications Indications: Hypertension Coronary Calcium Scoring: High-resolution Computed Tomographic imaging of the chest was performed on [11/19/2024], with particular attention paid to the coronary arteries. Images from the examination were analyzed for the presence and extent of coronary artery calcification , using coronary calcium quantification software. The patient tolerated the procedure well and there were no complications. The results of the coronary calcification analysis are provided below. Findings Coronary Artery Left Main (LM): 0 Left Anterior Descending (LAD): 0 Left Circumflex (LCX): 0 Right Coronary Artery (RCA): 0 Total Agatston Score: 0 Percentile Rankin Calcium Scoring Interpretation: Different methods to categorize the overall amount of coronary plaque. Overall amount CAC SIS Visual of coronary plaque P1 Mild -100 <2 1-2 vessels with mild amount of plaque P2 Moderate 101-300 3-4 1-2 vessels with moderate amount, 3 vessels with mild amount of plaque P3 Severe 301-999 5-7 3 vessels with moderate amount, 1 vessel with severe amount of plaque P4 Extensive >1000 >8 2-3 vessels with severe amount of plaque Conclusion: No atherosclerotic plaque
== END 2024-11-19 23:59 | disposition home or self-care (01) ==
PROVIDERS: PCP Family Medicine; Referring Provider Internal Medicine; Visit Provider Internal Medicine
DX: I10 Essential (primary) hypertension (principal)
CPT/HCPCS: 75571; 76380

== ENCOUNTER → 2024-11-24 | Outpatient (CLI) | payer OTHER, SELFPAY ==
--- NOTE | 2024-11-24 07:43 | RDU_ITS ---
Reason For Study Reason For Study: HTN Right Renal Artery Left Renal Artery Right renal artery ostium 144.8/46.4 Left renal artery ostium 134.5/46.6 RSV/EDV. PSV/EDV. Right renal artery proximal 152.6/41.2 Left renal artery proximal PSV/EDV PSV/EDV. 168.1/43.8 . Right renal artery mid 188.9/56.7 Left renal artery mid 168.1/36.0 PSV/EDV. PSV/EDV . Right renal artery distal 105.3/29.0 Left renal artery distal 165.5/36.0 PSV/EDV. PSV/EDV. Right RAR 1.92. Left RAR 1.70. Right Renal Parenchyma Left Renal Parenchyma Upper Pole Medula 48.0/18.8 PSV/EDV. Left upper pole medulla 64.5/21.6 Right upper pole medulla EDR 0.40 . PSV/EDV . Right upper pole medulla R.I. 0.61 . Left upper pole medulla EDR 0.30 . Upper [place] Cortx 28.9/12.4 PSV/EDV. Left upper pole medulla R.I. 0.67 . Right upper pole cortex EDR 0.40 . UP Cortex 22.5/9.7 PSV/EDV. Right upper pole cortex R.I. 0.57 . Left upper pole cortex EDR 0.40 . Right lower Pole medulla 40.7/17.9 Left upper pole cortex R.I. 0.57 . PSV/EDV . Left lower Pole medulla 48.0/22.5 Right lower pole medulla EDR 0.40 . PSV/EDV . Right lower pole medulla R.I. 0.56 . Left lower pole medulla EDR 0.50 . Lower Pole Cortex 25.2/11.5 PSV/EDV. Left lower pole medulla R.I. 0.53 . Right lower pole cortex EDR 0.50 . Lower Pole Cortx 25.8/9.7 PSV/EDV. Right lower pole cortex R.I. 0.54 . Left lower pole cortex EDR 0.40 . Right Renal Hilar Left lower pole cortex R.I. 0.62 . Right Hilar avg 99.7/35.8 PSV/EDV. Left Renal Hilar Right hilar acceleration time 20 m/sec. LT Hilar avg 90.8/35.8 PSV/EDV . Right Renal Dimensions Left hilar acceleration time 30 m/sec. Right kidney size 13.14 cm . Left Renal Dimensions Right cortical dimension 1.90 cm . Left kidney size 12.29 cm . Left cortical dimension 1.53 cm . Aorta Proximal abdominal aorta 2.03 x 2.08 cm . Proximal abdominal aorta peak systolic velocity is 63.6 cm/sec . Distal abdominal aorta 1.54 x 1.61 cm . Distal abdominal aorta peak systolic velocity is 98.6 cm/sec . Procedures Renal Artery Duplex with B-mode, Color and Pulsed Wave Doppler. VL/Renal Artery Duplex Ultrasound Interpretation Summary Right renal artery patent with < 60% stenosis. Left renal artery patent with normal velocities and no evidence of stenosis. Right renal vein patent. Left renal vein patent. Right kidney normal in size. Left kidney normal in size. Ordering Physician: Nolvia Galicia Referring Physician: Nolvia Galicia Performed By: Cornell Harris RVT
--- NOTE | 2024-11-24 07:43 | ECHOD_ITS ---
Reason For Study Reason For Study: ABNORMAL EKG Procedure This was a 2D Doppler, Color Flow transthoracic echocardiogram. Myocardial strain analysis was performed in this exam to aid in the assessment of cardiac function. Exam performed in department. Left Ventricle Normal LV size. The estimated ejection fraction is 53 %. No regional wall motion abnormalities noted. Right Ventricle Normal RV size. Normal systolic function. Atria Normal left atrium. Normal right atrium. Mitral Valve Bileaflet diffuse mitral valve thickening. Bileaflet mitral valve prolapse. Mild mitral valve prolapse, bileaflet. Mild (1+) eccentric mitral valve insufficiency. Tricuspid Valve Normal tricuspid valve. Trivial tricuspid valve insufficiency. Pulmonary artery systolic pressure is 26 mmHg. Aortic Valve Trisinus/trileaflet aortic valve. Pulmonic Valve Normal pulmonic valve. Great Vessels Normal aortic root. The pulmonary artery is normal size. Inferior vena cava collapse with respiration. Pericardium/Pleural No pericardial effusion. MMode/2D Measurements & Calculations LVIDd: 6.0 cm IVSd: 1.1 cm LVOT diam: 2.2 cm LVIDs: 3.9 cm LVPWd: 1.0 cm LVOT area: 3.8 cm2 RVDd: 4.5 cm FS: 36.2 % asc Aorta Diam: 3.4 cm LAV(MOD-bp): 55.8 ml LVAd ap4: 34.6 cm2 LAV(MOD-bp) Indexed: 25.6 ml/m2 LVLd ap4: 8.9 cm LAV(MOD-sp2): 60.6 ml EDV(MOD-sp4): 112.0 ml LAV(MOD-sp4): 51.8 ml EDV(sp4-el): 114.8 ml LVAs ap4: 21.7 cm2 LVLs ap4: 7.3 cm ESV(MOD-sp4): 52.8 ml ESV(sp4-el): 55.1 ml EF(MOD-sp4): 52.9 % EF(sp4-el): 52.0 % LVAd ap2: 33.8 cm2 SV(MOD-sp4): 59.2 ml SV(MOD-sp2): 54.5 ml LVLd ap2: 8.6 cm SI(MOD-sp4): 27.2 ml/m2 SI(MOD-sp2): 25.0 ml/m2 EDV(MOD-sp2): 108.7 ml EDV(sp2-el): 112.5 ml LVAs ap2: 22.7 cm2 LVLs ap2: 7.6 cm ESV(MOD-sp2): 54.3 ml ESV(sp2-el): 57.5 ml EF(MOD-sp2): 50.1 % SV(sp4-el): 59.7 ml Ao sinus diam: 3.[address] Junction: 2.9 cm LA dimension(2D): 4.2 cm LA A4 area: 20.4 cm2 RA A4 area: 21.5 cm2 TAPSE: 2.2 cm Time Measurements MV dec time: 0.19 sec Doppler Measurements & Calculations MV E max richie: 78.8 cm/sec Lat Peak E' Richie: 10.0 cm/sec Med Peak E' Richie: 12.7 cm/sec MV A max richie: 62.5 cm/sec E/E' lat: 7.9 E/E' med: 6.2 MV E/A: 1.3 MV dec slope: 417.6 cm/sec2 Ao V2 max: 128.8 cm/sec LV V1 max: 119.2 cm/sec Ao max P.6 mmHg LV V1 max P.7 mmHg Ao V2 mean: 90.6 cm/sec LV V1 mean P.2 mmHg Ao mean P.8 mmHg LV V1 mean: 83.3 cm/sec Ao V2 VTI: 29.0 cm LV V1 VTI: 25.9 cm AV (velocity ratio): 0.89 JACIKE(I,D): 3.4 cm2 JACKIE(V,D): 3.5 cm2 SV(LVOT): 97.2 ml PA V2 max: 85.5 cm/sec TR max richie: 240.7 cm/sec TR max P.2 mmHg ECHO/Echo Complete Interpretation Summary Normal LV size. The estimated ejection fraction is 53 %. Bileaflet diffuse mitral valve thickening. Mild mitral valve prolapse, bileaflet Mild (1+) eccentric mitral valve insufficiency. Ordering Physician: Nolvia Galicia Referring Physician: Vijay Warner Performed By: Marcy Joseph RDCS
--- OUTSIDE RECORDS SUMMARY | 2024-11-24 08:01 | XMS RPT_ITS | CCD ---
Author Organization [facility] Care Team Providers Care Coding Clerks Supervisor Name Role Phone Tree Bowen MD Unavailable Nolvia Galicia Consulting Unavailable Frida Nolvia Referring Unavailable Kev Millanril Attending Unavailable AlanaVijay schneider Primary Care Unavailable Referred, Self Attending Unavailable Referred, Self Referring Unavailable Alana, Vijay Primary Care Unavailable Frida Nolvia Attending Unavailable Frida, Nolvia Referring Unavailable Alana, Vijay Primary Care Unavailable FridaNolvia Attending Unavailable Frida, Nolvia Referring Unavailable AlanaVijay schneider Primary Care Unavailable Alana, Vijay Primary Care Unavailable Alana, Vijay Attending Unavailable Alana, Vijay Referring Unavailable Allergies Allergy Classification Reported Allergen(s) Allergy Type Date of Onset Reaction(s) Facility (1 source) PLANT POLLEN drug allergy 12-17-2018 hay fever [facility] Work Phone: Medications Completed/Discontinued Medications Medication Drug Class(es) Dates Sig (Normalized) Sig (Original) esomeprazole 20 mg delayed release oral capsule (1 source) Proton Pump Inhibitor Start: 12-17-2018 ESOMEPRAZOLE MAGNESIUM 20 MG CPDR 1 capsule daily ESOMEPRAZOLE MAGNESIUM [id number] Cass Corsaro [employer] lisinopril 10 mg oral tablet (1 source) Angiotensin Converting Enzyme Inhibitor Start: 12-17-2018 LISINOPRIL 10 MG TABS 1 tablet daily LISINOPRIL [id number] Cass Corsaro [employer] meloxicam 15 mg oral tablet (1 source) Nonsteroidal Anti-inflammatory Drug Start: 12-21-2018 MOBIC 15 MG TABS one a day MELOXICAM [id number] Tree Bowen MD Problems Active Problems Problem [...] Results Test Name Value Interpretation Reference Range Facility Coronary Angiography CTon Coronary Angiography CT [facility] Imaging Services [address] [place] [address] 11/22/24 0752 MR#: [id number] Acct: [id number] Name: NOAM MENSAH Rep #: [id number] : 1965 59 From: Kevin Millan MD PCP: Dr. Vijay Warner, Status:REG CLI Y Location: CT Calcium Scoring Date of Study:: 11/19/24 Indications Indications: Hypertension Coronary Calcium Scoring: High-resolution Computed Tomographic imaging of the chest was performed on [11/19/2024], with particular attention paid to the coronary arteries. Images from the examination were analyzed for the presence and extent of coronary artery calcification , using coronary calcium quantification software. The patient tolerated the procedure well and there were no complications. The results of the coronary calcification analysis are provided below. Findings Coronary Artery Left Main (LM): 0 Left Anterior Descending (LAD): 0 Left Circumflex (LCX): 0 Right Coronary Artery (RCA): 0 Total Agatston Score: 0 Percentile Rankin Calcium Scoring Interpretation: Different methods to categorize the overall amount of coronary plaque. Overall amount CAC SIS Visual of coronary plaque P1 Mild -100 <2 1-2 vessels with mild amount of plaque P2 Moderate 101-300 3-4 1-2 vessels with moderate amount, 3 vessels with mild amount of plaque P3 Severe 301-999 5-7 3 vessels with moderate amount, 1 vessel with severe amount of plaque P4 Extensive >1000 >8 2-3 vessels with severe amount of plaque Conclusion: No atherosclerotic plaque 11/22/24 0753 Date Kevin Millan MD Cosigner Signature (if applicable): Date CC: Dr. Kevin Millan MD; Dr. Nolvia Galicia DO; Dr. Vijay Warner DO Signed Normal [facility] Limited Chest CT Cardiac Onl yon 11-19-[address] Cardiac Only [facility] Imaging Services [address] [place] [id number] Cardiac Only MR#: [id number] Acct: [id number] Name: NOAM MENSAH Rep #: [id number] : 1965 M 59 From: Thee ye MD PCP: Dr. Vijay Warner DO Status: REG CLI Study: Limited Chest CT Cardiac Only Date of Exam: Exam# [id number] Ordering Dr: Nolvia Galicia DO PROCEDURE: LIMITED CHEST CT CARDIAC ONLY 11/19/2024 REASON FOR EXAM: HYPERTENSION TECHNIQUE: LIMITED CHEST CT CARDIAC ONLY CONTRAST: None One or more dose reduction techniques were used (e.g., Automated exposure control, adjustment of the mA and/or kV according to patient size, use of iterative reconstruction technique). RADIATION DOSE SUMMARY: CTDlvol: 12.19 mGy DLP: 219.42 mGycm COMPARISON: None FINDINGS: Small benign-appearing mediastinal lymph nodes. No coronary artery calcification is seen. The heart is nonenlarged. The lungs are clear. CT/Limited Chest CT Cardiac Only IMPRESSION: No coronary artery calcific. Reading Location: [facility] CC: Dr. Nolvia Galicia, DO; Dr. Vijay Warner, DO Administrative Representative: Signed Normal [facility] Basic Metabolic Profile (BMP )on 08-10-2024 BUN/CRE 16.1 RATIO Normal 10-20 [facility] Comment on above: Performed By: #### L 501.5200, L500.2500 #### [facility] [address] [place], [address] Calcium [Mass/Vol] 9.0 mg/dL Normal 7.6-11.0 [facility] Comment on above: Performed By: #### L 501.5200, L500.2500 #### [facility] [address] [place], [address] Chloride [Moles/Vol] 99 mmol/L Normal 98-108 [facility] Comment on above: Performed By: #### L 501.5200, L500.2500 #### [facility] [address] [place], [address] CO2 [Moles/Vol] 25.2 mmol/L Normal 21.0-32.0 [facility] Comment on above: Performed By: #### L 501.5200, L500.2500 #### [facility] [address] [place], [address] Creatinine [Mass/Vol] 1.37 mg/dL High 0.70-1.20 [facility] Comment on above: Performed By: #### L 501.5200, L500.2500 #### [facility] [address] [place], [address] GAP 11 Normal 5-15 [facility] Comment on above: Performed By: #### L 501.5200, L500.2500 #### [facility] [address] [place], [address] GFR/1.73 sq M.predicted among non-blacks MDRD (S/P/Bld) [Vol rate/Area] 60 mL/min/{1.73_m2} Normal >60 [facility] Comment on above: Result Comment: mL/m in/1.73m2 CKD-EPI Creatinine Equation (2020) Performed By: #### L 501.5200, L500.2500 #### [facility] [address] [place], [address] Glucose [Mass/Vol] 128 mg/dL High 70-99 [facility] Comment on above: Performed By: #### L 501.5200, L500.2500 #### [facility] [address] [place], [address] Potassium [Moles/Vol] 4.1 mmol/L Normal 3.3-5.1 [facility] Comment on above: Performed By: #### L 501.5200, L500.2500 #### [facility] [address] [place], [address] Sodium [Moles/Vol] 136 mmol/L Normal 133-145 [facility] Comment on above: Performed By: #### L 501.5200, L500.2500 #### [facility] [address] [place], [address] Urea nitrogen [Mass/Vol] 22 mg/dL High 4-19 [facility] Comment on above: Performed By: #### L 501.5200, L500.2500 #### [facility] [address] [place], [address] Magnesiumon 08-10-2024 Magnesium [Mass/Vol] 2.1 mg/dL Normal 1.5-2.2 [facility] Comment on above: Performed By: #### L 501.5200, L500.2500 #### [facility] [address] [place], [address] Clinical Summary: HMSPatient IDon 12-21-2018 OOP Regina lora [facility] Work Phone: Office Visit: New - 1st visi t with practice, Rm: 20on 12-21-2018 NEGATED: Highlighted rowMRI (magnetic resonance imaging) history of the cervical spine on 12/16/2018 at [facility] Work Phone: NEGATED: Highlighted rowxray history of the cervical spine on 12/14/2018 at [facility] Work Phone: Clinical Lists Update: Prelo ad Extendedon 12-17-2018 Tobacco smoking status NHIS Tobacco smoking status NHIS [facility] Work Phone: Clinical Summary: Data Submi tted by Patient in [place] 12-17-2018 #DEP CHLDRN No [place] [facility] Work Phone: 3+ETOHDAILY less than 1 drink per day [facility] Work Phone: ASTHEHSZHOUS 2 floors [facility] Work Phone: DEP ALG LIST I don't have any drug allergies.,I don't have any food allergies.,Plant pollens (Hay Fever) [facility] Work Phone: DEP DRUG USE No [facility] Work Phone: DEP EMPLOYER employed [facility] Work Phone: DEP ETOH USE Yes [facility] Work Phone: DEP EXERCISE Yes [facility] Work Phone: DEP EXERTYP walking, strength training [facility] Work Phone: DEP MED LIST Lisinopril 10 mg Tab, 1 times per day,Esomeprazole [address], 1 times per day [facility] Work Phone: DEP MOM PMH Heart disease [facility] Work Phone: DEP PMH High blood pressure [facility] Work Phone: DEP SH CSMO never smoker [facility] Work Phone: DEP SH MAST [facility] Work Phone: DEP SH OCCUP Teacher [facility]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 [facility] Work Phone: DEPFHPATUNKN My father's health history is unknown [facility] Work Phone: ETOHPERFRM beer, wine, liquor Maribel [facility] Work Phone: FATHER A/D Alive [facility] Work Phone: MOTHER A/D Alive [facility] Work Phone: RLATNSHPINFR Self [facility] Work Phone: SURGHX DENMAURIZIO I have not had any surgeries [facility] Work Phone: SWHOUTYPE house [facility] Work Phone: Vital Signs Date Time Vital Sign Value Performing Clinician Facility NEGATED: Highlighted [id number] 15:39-0400 BMI (Body Mass Index) 29.95 kg/m2 Meg Vann AT [facility] Work Phone: NEGATED: Highlighted [id number] 15:39-0400 Body weight 97.07 kg Meg Vann AT [facility] Work Phone: NEGATED: Highlighted [id number] 15:39-0400 Body weight 97 kg Meg Trentgner AT [facility] Work Phone: NEGATED: Highlighted [id number] 15:39-0400 BP Diastolic 80 mm[Hg] Meg Soo AT [facility] Work Phone: NEGATED: Highlighted [id number] 15:39-0400 BP Systolic 128 mm[Hg] Meg Soo AT [facility] Work Phone: NEGATED: Highlighted [id number] 15:39-0400 Height 180.34 cm Meg Soo AT [facility] Work Phone: NEGATED: Highlighted [id number] 15:39-0400 Height 180 cm Meg Soo AT [facility] Work Phone: NEGATED: Highlighted [id number] 15:39-0400 Pulse (Heart Rate) 71 /min Meg Trentgner AT [facility] Work Phone: Encounters Encounter Date Encounter Type Care Provider Facility Start: 11-24-2024 ambulatory Nolvia Frida Facilit y:[facility] Start: 11-22-2024 ambulatory Nolvia Frida Facilit y:[facility] Start: 11-19-2024 ambulatory Nolvia Frida Facilit y:[facility] Start: 10-12-2024 ambulatory Self Referred Facility: [facility] Start: 08-10-2024 End: 08-10-2024 ambulatory [facility] Facility:[facility] Start: 12-21-2018 End: 12-21-2018 Pt evaluation Tree Bowen MD Work Phone: [facility] Work Phone: Procedures Date Procedure Procedure Detail Performing Clinician NEGATED: Highlighted rowStart: 12-21-2018 End: 12-21-2018 Documentation of current medications Meg Vann AT Plan of Treatment Date Care Activity Detail Author Start: 12-21-2018 End: 12-21-2018 Appointment Appointment [facility] Work Phone: Patient Education Medications [facility] Work Phone: Payers Date Payer Category Payer Unknown [id number] 2024 Self-pay 2024 Unknown [id number] Unknown [id number] 2.16.8 [id number] Unknown [id number] 2.16.8 [id number] Unknown [id number] 2.16.8 [id number] Unknown [id number] 2.16.8 [id number] Unknown [id number] 2.16.8 [id number] Social History Date Type Detail Facility Start: 12-21-2018 End: 12-21-2018 Assertion Unknown if ever smoked [facility] Work Phone: Chief Complaint Chief Complaint [...] ized section and content) DATE CREATED AUTHOR 11/22/2024 [facility] FOR RECORDS PERTAINING TO PATIENTS WHO [...] BE BASED ON THE PRIMARY CLINICAL RECORDS. [employer] provides no warranty or guarantee of the accuracy or completeness of information in this document.
== END | disposition home or self-care (01) ==
LOC: CVS 07:40
PROVIDERS: PCP Family Medicine; Referring Provider Internal Medicine; Visit Provider Internal Medicine
DX: I45.10 Unspecified right bundle-branch block (principal); I10 Essential (primary) hypertension; I34.1 Nonrheumatic mitral (valve) prolapse
CPT/HCPCS: 93306; 93975